=== PATIENT | male | born 1930 | race African-American/Black ===

== ENCOUNTER 2020-05-23 11:31 | Outpatient (CLI) | payer MEDICARE, MEDICAID ==
--- NOTE | 2020-05-23 12:07 | RAD ---
Radiograph right shoulder 3 views: HISTORY: 89-year-old male with right shoulder pain As requested, this report was called stat to Dr. Abel at the time of this dictation COMPARISON: None FINDINGS: There is severe joint space narrowing with sclerosis, and large inferior osteophytosis, at the glenoh umeral joint, with mild flattening and remodeling of the medial articular surface of the humeral head. There are numerous moderate sized soft tissue calcifications/ossifications in the right shoulder, sup erior to, lateral to, and medial to, the glenohumeral joint, including a large one located medial and inferior to the coracoid process. No fracture or dislocation. IMPRESSION: 1.) Synovial osteochondromatosis of the right shoulder. 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
== END 2020-05-23 11:32 | disposition home or self-care (01) ==
LOC: BICRAD 11:31
PROVIDERS: ATTEND Family Medicine
DX: M25.511 Pain in right shoulder (principal); D48.0 Neoplasm of uncertain behavior of bone and articular cartilage; M19.011 Primary osteoarthritis, right shoulder

== ENCOUNTER 2020-08-28 11:50 | Outpatient (CLI) | payer MEDICARE, MEDICAID ==
[2020-08-28] MEDS ORDERED: Iopamidol 370 76% 100 ML VIAL ONE (12:23)
== END 2020-08-28 11:51 | disposition home or self-care (01) ==
LOC: CT 11:50
PROVIDERS: ATTEND Family Medicine
DX: R59.0 Localized enlarged lymph nodes (principal); J43.9 Emphysema, unspecified; R91.8 Other nonspecific abnormal finding of lung field; N28.1 Cyst of kidney, acquired; K76.89 Other specified diseases of liver
CPT/HCPCS: 70491; 71260; Q9967

== ENCOUNTER 2020-09-02 09:21 | Outpatient (CLI) | payer MEDICARE, MEDICAID | END 2020-09-02 09:22 | disposition home or self-care (01) | LOC: PET 09:21 | PROVIDERS: ATTEND Family Medicine | DX: R59.0 Localized enlarged lymph nodes (principal) | CPT/HCPCS: 78815; A9552 ==

== ENCOUNTER 2022-01-21 11:48 | Outpatient (CLI) | payer MEDICARE, MEDICAID | END 2022-01-21 11:49 | disposition home or self-care (01) | LOC: BICRAD 11:48 | PROVIDERS: ATTEND Family Medicine | DX: M25.552 Pain in left hip (principal); M25.852 Other specified joint disorders, left hip; M25.752 Osteophyte, left hip; M89.9 Disorder of bone, unspecified ==